=== PATIENT | male | born 1960 | race Caucasian/White ===

== ENCOUNTER → 2016-06-23 | Outpatient (CLI) | payer BC ==
[~2016-06-23] MED LIST: ALLEGRA PO; ALLERGY RELIEF180 MG PO; ASPIRIN81 M1 PO; BENADRYL PO; CELEXA20 MG PO; CENTRUM SILVER1 EAC2 PO; DIOVAN PO; FISH OIL 1,2001 CAP PO; LIPITOR PO; MEDROL PO; MULTI-VITAMIN1 TAB PO; PRAVACHOL PO; TOPROL XL PO; ZETIA PO
--- NOTE | ~2016-06-23 | US37 ---
[facility] A Service of [facility] & [facility] RADIOLOGY TEXT RESULTS PATIENT: IVAN NICHOLS LOCATION: CMRI : 56 UNIT #: [id number] AGE: [address]: Barron Martinez MD SEX: M ORDER DR: [id number] [facility] [address]. [place], [place] [address] [id number] O MR#: [id number] Acc #: [id number] NAME: IVAN NICHOLS : 1960 SEX: M STUDY DATE/TIME: 06/23/2016 9:07 UNIT: CM[facility] ROOM: STUDY DESCRIPTION: US Carotid W/Doppler Bilateral Attending Physician: Barron Martinez M.D. Ordering Physician: Barron Martinez M.D. Primary Care Physician: Barron Martinez M.D. MEDICAL IMAGING REPORT This report is preliminary unless electronic signature is present EXAM Bilateral carotid Doppler ultrasound. DATE 06/23/2016 HISTORY 56-year-old male with blurred vision in half the right eye. Hypertension. Headache for 1 year. Migraines for 1 year. COMPARISON None FINDINGS Real time bates-scale, color Doppler, and spectral Doppler imaging was performed in the bilateral cervical carotid arteries and vertebral arteries. Estimated stenosis was based on standard NASCET methodology. No appreciable atherosclerotic plaque is demonstrated within the right common carotid artery, bulb, or proximal internal or external carotid arteries. Peak systolic velocity in the right internal carotid artery proximal segment 63.9 cm/sec, mid segment 56.4 cm/sec, distal segment 50.9 cm/sec, indicating 0% luminal stenosis by NASCET methodology. Right external carotid artery is patent. Right vertebral artery is patent with normal antegrade flow. Normal spectral Doppler waveforms are demonstrated. There is mild calcific plaquing within the left carotid bulb and proximal left external carotid artery. No significant atherosclerotic plaquing is demonstrated within the left internal carotid artery. Peak systolic velocity in the left internal carotid artery proximal segment 55.5 cm/sec, midsegment 54.1 cm/sec, distal segment 53.7 cm/sec, indicating 0% luminal stenosis by NASCET methodology. Left external carotid artery is patent. Left vertebral artery is patent with normal antegrade flow. [facility] A Service of [facility] & [facility] RADIOLOGY TEXT RESULTS PATIENT: IVAN NICHOLS LOCATION: CMRI : 56 UNIT #: [id number] AGE: [address]: Barron Martinez MD SEX: M ORDER DR: Right ICA/CCA ratio 1.1. Left ICA /CCA ratio 0.7. IMPRESSION 1. No hemodynamically significant stenosis in the bilateral internal carotid arteries by NASCET methodology. There is only very mild calcific plaquing in the left carotid bulb and proximal left external carotid artery. 2. Patency and antegrade flow of the bilateral vertebral arteries. Dictated by... Charlene Jacskon M.D. THIS IS AN ELECTRONICALLY VERIFIED REPORT Charlene Jackson M.D. at 06/24/2016 11:56 AM ALEKSANDRA/kala TD: 06/23/2016 12:50 JOB #: [id number] MEDICAL IMAGING REPORT COPY
--- NOTE | ~2016-06-23 | HM ---
Unit #: [id number] #: [id number] Patient: IVAN NICHOLS [id number] [address] [address] [id number] O MR#: [id number] NAME: IVAN NICHOLS. : 1960 SEX: M STUDY DATE/TIME: 06/23/2016 UNIT: CMRI ROOM: STUDY DESCRIPTION: Holter Attending Physician: Barron Martinez M.D. Primary Care Physician: Barron Martinez M.D. CARDIOLOGY REPORT EXAM Syncope. DATE APPLIED 06/23/2016 DATE SCANNED 06/26/[address] Barron Martinez READ BY Dr. Watson INDICATION Syncope DESCRIPTION OF PROCEDURE The patient's Holter was monitored for 24 hours. Underlying rhythm is sinus with average heart rate of 63 beats per minute. Heart rate ranged from 49 beats per minute to 90 beats per minute. The patient has very rare PVCs and PACs. CONCLUSION Fairly normal Holter monitor. Dictated by... Amparo JacksonS/vianey TD: 06/30/2016 05:01 JOB #: [id number] Unit #: [id number] #: [id number] Patient: IVAN NICHOLS CARDIOLOGY REPORT X Phuc Watson MD HOLTER MONITOR REPORT
--- NOTE | ~2016-06-23 | MR18 ---
[facility] A Service [facility] RADIOLOGY TEXT RESULTS PATIENT: IVAN NICHOLS LOCATION: CMRI : 56 UNIT #: [id number] AGE: [address]: Barron Martinez MD SEX: M ORDER DR: [id number] [facility] [address] [place], [place] [address] [id number] O MR#: [id number] Acc #: [id number] NAME: IVAN NICHOLS : 1960 SEX: M STUDY DATE/TIME: 06/23/2016 7:14 UNIT: [facility] ROOM: STUDY DESCRIPTION: MR Brain Wo Contrast Attending Physician: Barron Martinez M.D. Ordering Physician: Barron Martinez M.D. Primary Care Physician: Barron Martinez M.D. MRI CENTER REPORT This report is preliminary unless electronic signature is present. EXAM MRI brain without contrast INDICATION Syncopal episodes for the past 6 months. Migraine headaches for the past year. PROCEDURE Unenhanced multiphase multisequence MR imaging of the brain. COMPARISON None FINDINGS Overall normal brain volume. There is no acute hemorrhage, abnormal mass effect, extraaxial collection or hydrocephalus. Diffusion weighted imaging shows no evidence for acute or early subacute infarct. There is mild periventricular and deep white matter T2 hyperintensity, including a small 5.0 mm focus in the posterior right frontal white matter. There are scattered areas of susceptibility artifact. These are nonspecific but may represent a remote microhemorrhages. These foci do have a somewhat peripheral distribution with many located in the cortical and subcortical regions. Amyloid angiopathy is another consideration. There is relative sparing of the carmen. The flow voids in the major intracranial vessels are intact. Paranasal sinuses and mastoid air cells are clear. IMPRESSION 1. No acute findings. 2. Mild periventricular and deep white matter T2 hyperintensity nonspecific but probably represents mild sequela of chronic small vessel ischemic change. 3. Multiple small foci of restricted diffusion, as detailed above. Considerations include punctate microhemorrhages, amyloid angiopathy [facility] A Service of [facility] RADIOLOGY TEXT RESULTS PATIENT: IVAN NICHOLS [facility] UN[facility] #: [id number] AGE: [address]: Barron Martinez MD SEX: M ORDER DR: or multiple cavernous angiomas. Dictated by... Helder Sam M.D. THIS IS AN ELECTRONICALLY VERIFIED REPORT Helder Sam M.D. at 06/25/2016 7:36 AM Willie TD: 06/24/2016 12:40 JOB #: [id number] MRI CENTER REPORT COPY
--- NOTE | ~2016-06-23 | EE ---
Unit #: [id number] #: [id number] Patient: IVAN NICHOLS [id number] [address] [address] [id number] O MR#: [id number] NAME: IVAN NICHOLS : 1960 SEX: M STUDY DATE/TIME: 06/23/2016 UNIT: [facility]RI ROOM: STUDY DESCRIPTION: Attending Physician: Barron Martinez M.D. Referring Physician: Barron Martinez M.D. Primary Care Physician: Barron Martinez M.D. NEURODIAGNOSTICS REPORT EXAM EEG. REASON FOR THE STUDY Syncope. EEG DESCRIPTION This is an outpatient, digitally recorded, multimontage adult EEG with leads placed according to the International 10/20 System. Hyperventilation and photic stimulation were attempted. With the patient fully aroused, there is 10 to 11 Hz posterior dominant alpha rhythm which is symmetric and attenuates with eyes opening. The patient did become drowsy and later on some stage II sleep was seen. Hyperventilation was attempted but I did not see any significant changes. Photic stimulation was attempted in an intermittent stepwise pattern up to the flash frequency of 30 Hz but I did not see any driving, asymmetry, or paroxysmal activity. There were muscle and beta artifact throughout the recording. There were maybe some tremors also. IMPRESSION Essentially normal recording, some beta artifact and tremors were seen, some muscle artifact but I did not see any significant changes even when the filters were used to suggest these are epileptiform discharges, so clinical correlation is recommended. Dictated by... Amparo Martini/froilan TD: 06/23/2016 17:06 JOB #: [id number] Unit #: [id number] #: [id number] Patient: IVAN NICHOLS NEURODIAGNOSTICS REPORT X Alvino Avina MD NEURODIAGNOSTICS REPORT
== END | disposition home or self-care (01) ==
LOC: CMRI 06:41
DX: R55 Syncope and collapse (principal); I49.9 Cardiac arrhythmia, unspecified; I10 Essential (primary) hypertension; I65.22 Occlusion and stenosis of left carotid artery
CPT/HCPCS: 70551; 93225; 93226; 93880; 95816